=== PATIENT | female | born 1985 | race Caucasian/White ===

== ENCOUNTER → 2017-02-19 | Outpatient (CLI) | payer BC ==
[2017-02-19 14:35] LABS: Basophils % (A) 0 %; CH 27.9; CHCM 31.7; Eosinophils # (A) 0.1 k/uL (0-0.7); Eosinophils % (A) 1 %; HCT 44.4 % (34.0-46.0); HDW 2.36; Luc # (Auto) 0.09; Luc % (Auto) 1; Lymphocytes # (A) 1.9 k/uL (1.0-4.8); Lymphocytes % (A) 22 %; MCHC 31.6 g/dL (31.0-37.0); MCV 88.6 fL (80.0-100.0); Mean Platelet Volume 7.7; Monocytes # (A) 0.4 k/uL (0-1.0); Monocytes % (A) 4 %; Neutrophils % (A) 71 %; RBC 5.01 m/uL (3.80-5.40); RDW 15.1 % (11.5-15.5); WBC 8.5 k/uL (3.8-10.6); WBC (Perox) 9.04
[2017-02-19 14:56] LABS: C Reactive Protein 12.5 mg/L (<10.0); Creatine Kinase 53 U/L (30-135); Rheumatoid Factor, Qnt <9 IU/mL (<12)
[2017-02-19 15:41] LABS: Vitamin B12 342 pg/mL (239-931)
[2017-02-19 17:13] LABS: Erythrocyte Sedimentation Rate 8 mm/hr (0-20)
[2017-02-19 19:43] LABS: ANA w/Reflex to Titer NEGATIVE (NEGATIVE)
[2017-02-20 10:49] LABS: Lyme IgG/IgM 1.4 Index; Lyme IgG/IgM Interp POSITIVE (NEGATIVE)
== END | disposition home or self-care (01) ==
LOC: LABWHC1 13:35
PROVIDERS: ATTEND Psychiatry & Neurology Neurology
DX: M54.2 Cervicalgia (principal); M79.7 Fibromyalgia
CPT/HCPCS: 36415; 82306; 82550; 82607; 82747; 84439; 84443; 85025; 85652; 86038; 86140; 86225; 86431; 86618

== ENCOUNTER → 2017-05-23 | Outpatient (CLI) | payer BC ==
--- NOTE | 2017-05-24 08:49 | XR ---
EXAMINATION TYPE: XR KUB DATE OF EXAM: 05/23/2017 COMPARISON: NONE INDICATION: Lower abdominal pain TECHNIQUE: Single view abdomen FINDINGS: Normal colonic bowel gas is present. Fecal debris is in the ascending colon and some milder fecal di ris is in the transverse colon. Psoas margins are normal. No organomegaly is present. IMPRESSION: 1. Unremarkable Abdomen
== END | disposition home or self-care (01) ==
LOC: RADXRMAIN 17:07
PROVIDERS: ATTEND Nurse Practitioner Family
DX: R10.9 Unspecified abdominal pain (principal)
CPT/HCPCS: 74000

== ENCOUNTER → 2017-09-17 | Outpatient (CLI) | payer BC ==
[2017-09-17 16:55] LABS: Basophils % (A) 0 %; Eosinophils # (A) 0.1 k/uL (0-0.7); Eosinophils % (A) 1 %; HCT 41.7 % (34.0-46.0); HGB 13.1 gm/dL (11.4-16.0); Lymphocytes # (A) 2.9 k/uL (1.0-4.8); Lymphocytes % (A) 31 %; MCH 27.9 pg (25.0-35.0); MCHC 31.5 g/dL (31.0-37.0); MCV 88.8 fL (80.0-100.0); Mean Platelet Volume 7.7; Monocytes # (A) 0.4 k/uL (0-1.0); Monocytes % (A) 5 %; Neutrophils % (A) 63 %; Platelet Count 310 k/uL (150-450); RDW 13.3 % (11.5-15.5); WBC 9.6 k/uL (3.8-10.6)
[2017-09-17 17:12] LABS: ALT 20 U/L (9-52); AST 14 U/L (14-36); Albumin 4.2 g/dL (3.5-5.0); Alkaline Phosphatase 59 U/L (38-126); Anion Gap 12 mmol/L; Blood Urea Nitrogen 9 mg/dL (7-17); Calcium 9.7 mg/dL (8.4-10.2); Carbon Dioxide 24 mmol/L (22-30); Chloride 106 mmol/L (98-107); Glucose 90 mg/dL (74-99); Potassium 4.3 mmol/L (3.5-5.1); Sodium 142 mmol/L (137-145); Total Bilirubin 0.3 mg/dL (0.2-1.3)
== END | disposition home or self-care (01) ==
LOC: LABWHC1 16:21
PROVIDERS: ATTEND Psychiatry & Neurology Neurology
DX: G44.52 New daily persistent headache (NDPH) (principal)
CPT/HCPCS: 36415; 80053; 85025

== ENCOUNTER → 2018-03-06 | Outpatient (CLI) | payer BC ==
--- NOTE | 2018-03-06 10:39 | MM ---
Reason for exam: clinical finding. Baseline mammogram. History: Family history of breast cancer in maternal grandmother at age 35. Physical Findings: Nurse Summary: 0.5 x 0.5cm nodule in the right breast at 12 o'clock and a 1 x 1cm nodule in the left breast at 3 o'clock (nurse ts). MG 3D Diag Mammo W/Cad [facility]IS ALBERTO Bilateral CC, MLO, and XCCL view(s) were taken. The breast tissue is heterogeneously dense. This may lower the sensitivity of mammography. No suspicious abnormality. These results were verbally communicated with the patient and result sheet given to the patient on 03/06/18. ASSESSMENT: Negative, BI-RAD 1 RECOMMENDATION: Routine screening mammogram of both breasts in 1 year.
--- NOTE | 2018-03-06 10:41 | USB ---
Reason for exam: clinical finding. History: Family history of breast cancer in maternal grandmother at age 35. US Breast BILAT Right complete breast ultrasound includes all four quadrants, the retroareolar region and axilla. Finding demonstrates no cystic or solid lesion seen. Left complete breast ultrasound includes all four quadrants, the retroareolar region and axilla. Finding demonstrates a 0.7 x 0.7 x 0.3cm solid, hypoechoic lesion at 1 o'clock, possibly a lymph node or dense tissue. These results were verbally communicated with the patient and result sheet given to the patient on 03/06/18. ASSESSMENT: Probably benign, BI-RAD 3 RECOMMENDATION: Ultrasound of the left breast in 6 months. upper outer quadrant
== END ==
LOC: RADMAMWWP 08:10
PROVIDERS: ATTEND Family Medicine
DX: Z12.31 Encounter for screening mammogram for malignant neoplasm of breast (principal)
CPT/HCPCS: 77062; 77066

== ENCOUNTER 2019-08-06 | Emergency (ER) | payer BC | END 2019-08-06 12:25 | disposition home or self-care (01) | CPT/HCPCS: 36415; 80053; 82150; 83690; 85025; 81003; 81025; 76705; 99284; 96374; 96375; 96361; J2405; J1885 ==

== ENCOUNTER → 2020-06-22 | Outpatient (CLI) | payer BC ==
--- NOTE | 2020-06-22 09:37 | NM ---
EXAMINATION TYPE: NM hepatobiliary w CCK DATE OF EXAM: 06/22/2020 COMPARISON: NONE HISTORY: R10.11; R11.0 TECHNIQUE: After the intravenous administration of 4.16 mCi Tc 99m Mebrofenin hepatobiliary scintigra phy is performed. Immediate images post injection. FINDINGS: There is satisfactory initial accumulation of tracer by the liver. The gallbladder is visualized wit hin 10 minutes. The small bowel activity is noted within 60 minutes. At one hour CCK was administer ed, patient was injected with 2.7 mcg of Kinevac, and gallbladder ejection fraction is calculated at 97%. IMPRESSION: Findings suggest hypercontractile state.
== END | disposition home or self-care (01) ==
LOC: RADNMMAIN 06:47
PROVIDERS: ATTEND Family Medicine
DX: R10.11 Right upper quadrant pain (principal); R11.0 Nausea
CPT/HCPCS: 78227; A9537; J2805

== ENCOUNTER → 2020-07-16 | Outpatient (CLI) | payer BC | END | disposition home or self-care (01) | LOC: RADECHMAIN 11:50 | PROVIDERS: ATTEND Family Medicine | DX: I49.8 Other specified cardiac arrhythmias (principal); I49.1 Atrial premature depolarization; R00.0 Tachycardia, unspecified | CPT/HCPCS: 93225; 93226 ==

== ENCOUNTER 2020-07-21 08:54 | Day surgery (SDC) | payer BC ==
[2020-07-16 08:57] VITALS: BMI 43.2
[~2020-07-21 08:54] MED LIST: ACETAMINOPHEN TAB 500 MG TAB PO PRN; DEXAMETHASONE SOD PHOSPHATE 4 MG/ML 1 ML VIAL IV ONE; HEPARIN SODIUM,PORCINE 5,000 UNIT/ML 1 ML VIAL SQ PRN; LACTATED RINGERS 1,000 ML IV SCH; LIDOCAINE 1% (10MG/ML) FOR IV START INTRADERMA PRN; ceFAZolin 3 GM in SODIUM CHLORIDE 0.9% 100 ML IVPB PRN
[2020-07-21] MEDS ORDERED: ONDANSETRON 4 MG/2 ML VIAL ONE (09:47)
[2020-07-21] MEDS ORDERED: ONDANSETRON 4 MG/2 ML VIAL IVP ONE (09:50)
[2020-07-21] MEDS ORDERED: SUCCINYLCHOLINE CHLORIDE 100 MG/5 ML SYR IV ONE (10:19)
[2020-07-21] MEDS ORDERED: ROCURONIUM 10 MG/ML (5 ML VIAL) IV ONE (10:19)
[2020-07-21] MEDS ORDERED: PROPOFOL 10 MG/ML 20 ML VIAL IV ONE (10:19)
[2020-07-21] MEDS ORDERED: MIDAZOLAM 2 MG/2 ML VIAL ONE (10:19)
[2020-07-21] MEDS ORDERED: fentaNYL (PF) 50 MCG/ML 2 ML AMP ONE (10:19)
[2020-07-21] MEDS ORDERED: GLYCOPYRROLATE 0.2 MG/ML 2 ML VIAL ONE (10:19)
[2020-07-21] MEDS ORDERED: LIDOCAINE 1% INJ 10MG/ML (20 ML MDV) ONE (10:19)
[2020-07-21] MEDS ORDERED: NEOSTIGMINE 1 MG/ML 10 ML VIAL ONE (10:19)
--- NOTE | 2020-07-21 10:36 | P.GSHP ---
History of Present Illness H&P Date: 07/21/20 Chief Complaint: Right upper quadrant pain Is a 34-year-old female who presents today for laparoscopic cholecystectomy. She's had complete upper quadrant pain. Her recent HIDA scan shows abnormal ejection fraction Past Medical History Past Medical History: Fibromyalgia, GERD/Reflux Additional Past Medical History / Comment(s): MIGRAINES. GALLBLADDER DISORDER History of Any Multi-Drug Resistant Organisms: None Reported Past Surgical History: Section, Orthopedic Surgery Additional Past Surgical History / Comment(s): wisdom teeth. CYSTS REMOVED FROM BILAT EARS. ORIF RT ANKLE Past Anesthesia/Blood Transfusion Reactions: No Reported Reaction Smoking Status: Never smoker - Past Family History Mother Family Medical History: No Reported History Medications and Allergies Home Medications Medication Instructions Recorded Confirmed Type Cholecalciferol [Vitamin D3] 5,000 unit PO DAILY 05/22/16 07/21/20 History Amitriptyline HCl 10 mg PO HS 08/06/19 07/21/20 History Amitriptyline HCl [Elavil] 25 mg PO HS 08/06/19 07/21/20 History DULoxetine HCL [Cymbalta] 30 mg PO DAILY 08/06/19 07/21/20 History DULoxetine HCL [Cymbalta] 60 mg PO DAILY 08/06/19 07/21/20 History Gabapentin 600 mg PO HS 08/06/19 07/21/20 History Ibuprofen [Motrin Ib] 200 mg PO Q8H PRN 08/06/19 07/21/20 History Naproxen Sodium [Aleve] 220 mg PO BID PRN 08/06/19 07/21/20 History Naratriptan HCl [Amerge] 2.5 mg PO DAILY PRN 08/06/19 07/21/20 History Topiramate [Topamax] 50 mg PO BID 08/06/19 07/21/20 History clonazePAM [KlonoPIN] 0.5 mg PO BID PRN 08/06/19 07/21/20 History diphenhydrAMINE HCL [Benadryl] 25 mg PO Q8H PRN 08/06/19 07/21/20 History Lansoprazole [Prevacid] 30 mg PO DAILY 07/16/20 07/21/20 History Allergies Allergy/AdvReac Type Severity Reaction Status Date / Time No Known Allergies Allergy Verified 07/21/20 09:32 Surgical - Exam Vital Signs Temp Pulse Resp BP Pulse Ox 98.2 F 80 18 133/72 100 07/21/20 09:29 07/21/20 09:29 07/21/20 09:29 07/21/20 09:29 07/21/20 09:29 - General well developed, well nourished, no distress - Eyes PERRL - ENT normal pinna - Neck no masses - Respiratory normal expansion - Cardiovascular Rhythm: regular - Abdomen Abdomen: soft, non tender Assessment and Plan Assessment: Chronic cholecystitis. We'll perform laparoscopic cholecystectomy
[2020-07-21] MEDS ORDERED: BUPIVACAINE-EPI 0.5%-1:200,000 10 ML VIAL SQ ONE (11:11)
[2020-07-21 11:42] VITALS: TEMP 97.8
[2020-07-21 11:46] VITALS: RESP 16
[2020-07-21] MEDS: HYDROmorphone 0.5 MG/0.5 ML SYRINGE IVP PRN ×2 (12:05→12:13)
[2020-07-21] MEDS ORDERED: diphenhydrAMINE 50 MG/ML 1 ML VIAL IVP ONE (12:13)
[2020-07-21] MEDS ORDERED: KETOROLAC 15 MG/ML 1 ML VIAL ONE (12:59)
[2020-07-21] MEDS ORDERED: KETOROLAC 15 MG/ML 1 ML VIAL IVP ONE (13:01)
[2020-07-21 13:33] VITALS: BP 127/85; PULSE 83
--- NOTE | 2020-08-06 07:54 | P.OP ---
Date of Procedure: 07/21/20 Preoperative Diagnosis: Biliary dyskinesia Postoperative Diagnosis: Chronic cholecystitis Procedure(s) Performed: Laparoscopic cholecystectomy Anesthesia: NETTA Surgeon: Joel Chen Pathology: other (Gallbladder) Condition: stable Disposition: PACU Description of Procedure: The patient was placed on the operating table. The patient received a general endotracheal tube anesthesia. The patients abdomen was prepped and draped in the usual sterile fashion. Through an infraumbilical stab incision, the fascia of the anterior abdominal wall was grasped with a pair of Kochers and then the Veress needle was placed in the peritoneal cavity. Position of the Veress needle was confirmed with positive drop test. The abdomen was then insufflated. After adequate insufflation, the 10 mm trocar was placed in the peritoneal cavity. Following this the laparoscope was placed in the perito nabila cavity. The patient was placed in the head-up, right side up position and then a 5 mm trocar was placed in the right lateral and right subcostal position under direct visualization. A 8 mm trocar was placed in the epigastric position. The gallbladder was grasped in the fundus and infundibulum. Traction on the gallbladder was placed in the lateral and the cephalad positions. The triangle of Calot was visualized.. The cystic duct was bluntly dissected until the union of the cystic duct and common bile duct was seen. A critical view of safety was achieved. The cystic duct was then divided and sealed with the Harmonic scissors. A PDS Endoloop was then placed throughout the cystic duct stump. The cystic artery divided and sealed with the Harmonic scissors. The gallbladder was then removed from the liver bed using Harmonic scissors. The gallbladder was then extracted through the epigastric port site. Operative field was checked for any bleeding spots and Harmonic scissors was used to coagulate the liver bed. The abdomen was irrigated. The trocars were removed. The skin was closed using interrupted 3-0 Vicryl suture. Dermabond dressing were applied. The patient tolerated the procedure well.
== END 2020-07-21 13:54 | disposition home or self-care (01) ==
LOC: OR 08:54
PROVIDERS: ATTEND Surgery
DX: K81.1 Chronic cholecystitis (principal); K21.9 Gastro-esophageal reflux disease without esophagitis; M79.7 Fibromyalgia; G43.909 Migraine, unspecified, not intractable, without status migrainosus; Z98.890 Other specified postprocedural states; Z98.891 History of uterine scar from previous surgery; Z79.899 Other long term (current) drug therapy; E66.9 Obesity, unspecified; Z68.41 Body mass index [BMI] 40.0-44.9, adult
CPT/HCPCS: 47562; 81025; 88304; J2250; J1200; J1644; J1100; J2710; J0690; J2405; J2001; J3010; J1885; J0330; J2704; J1170

== ENCOUNTER → 2021-02-05 | Outpatient (CLI) | payer BC ==
--- NOTE | 2021-02-05 17:01 | XR ---
EXAMINATION TYPE: XR knee limited RT DATE OF EXAM: 02/05/2021 CLINICAL HISTORY: Right medial knee pain and swelling after twisting injury. TECHNIQUE: Frontal and lateral views of the right knee COMPARISON: None. FINDINGS: No acute fracture or dislocation. No significant degenerative changes. Small knee joint effusion. Sof t tissues appear unremarkable. IMPRESSION: 1. Small knee joint effusion. 2. No acute fracture or dislocation.
== END | disposition home or self-care (01) ==
LOC: RADXRMAIN 14:05
PROVIDERS: ATTEND Physician Assistant Medical
DX: M25.461 Effusion, right knee (principal)

== ENCOUNTER → 2021-06-09 | Outpatient (CLI) | payer BC ==
[2021-06-09 23:07] LABS: Basophils # (A) 0.08 X 10*3/uL (0.00-0.10); Basophils % (A) 0.7 %; Eosinophils % (A) 1.8 %; HCT 39.1 % (37.2-46.3); HGB 11.7 g/dL (12.0-15.0); Lymphocytes # (A) 3.25 X 10*3/uL (0.90-5.00); Lymphocytes % (A) 28.8 %; MCH 25.9 pg (27.0-32.0); MCHC 29.9 g/dL (32.0-37.0); MCV 86.7 fL (80.0-97.0); Mean Platelet Volume 10.5 fL (9.5-12.2); Monocytes # (A) 0.83 X 10*3/uL (0.20-1.00); Monocytes % (A) 7.3 %; Neutrophils # (A) 6.87 X 10*3/uL (1.80-7.70); Neutrophils % (A) 60.8 %; Platelet Count 417 X 10*3/uL (140-440); RBC 4.51 X 10*6/uL (4.10-5.20); RDW 15.6 % (11.5-14.5)
== END | disposition home or self-care (01) ==
LOC: LABWHC1 16:19
PROVIDERS: ATTEND Physician Assistant Medical
DX: D72.829 Elevated white blood cell count, unspecified (principal)
CPT/HCPCS: 36415; 85025

== ENCOUNTER → 2021-08-26 | Outpatient (CLI) | payer BC ==
--- NOTE | 2021-08-29 10:51 | MM ---
Reason for exam: screening (asymptomatic). Last mammogram was performed 3 years and 6 months ago. History: Family history of breast cancer in maternal grandmother at age 35. Physical Findings: A clinical breast exam by your physician is recommended on an annual basis and results should be correlated with mammographic findings. MG Screening Mammo w CAD Bilateral CC and MLO view(s) were taken. Prior study comparison: March 06, 2018, bilateral MG 3d diag mammo w/cad [facility] ALBERTO. The breast tissue is heterogeneously dense. This may lower the sensitivity of mammography. There is no discrete abnormality. ASSESSMENT: Negative, BI-RAD 1 RECOMMENDATION: Routine screening mammogram of both breasts in 1 year.
== END | disposition home or self-care (01) ==
LOC: RADMAMWWP 07:34
PROVIDERS: ATTEND Family Medicine
DX: Z12.31 Encounter for screening mammogram for malignant neoplasm of breast (principal); Z80.3 Family history of malignant neoplasm of breast
CPT/HCPCS: 77067

== ENCOUNTER → 2022-10-17 | Outpatient (CLI) | payer BC ==
[2022-10-17 22:42] LABS: Urine Alcohol Negative (Negative); Urine Barbiturate Negative (Negative); Urine Cocaine Negative (Negative); Urine Methadone Negative (Negative); Urine Opiates Negative (Negative); Urine Phencyclidine Negative (Negative)
== END | disposition home or self-care (01) ==
LOC: LABWHC1 14:57
PROVIDERS: ATTEND Nurse Practitioner
DX: Z79.899 Other long term (current) drug therapy (principal)
CPT/HCPCS: 80306

== ENCOUNTER → 2023-06-22 | Outpatient (CLI) | payer BC ==
[2023-06-22 15:40] LABS: Basophils # (A) 0.05 X 10*3/uL (0.00-0.10); Basophils % (A) 0.5 %; Eosinophils # (A) 0.14 X 10*3/uL (0.04-0.35); Eosinophils % (A) 1.4 %; HCT 44.8 % (37.2-46.3); HGB 13.4 g/dL (12.0-15.0); Lymphocytes # (A) 2.61 X 10*3/uL (0.90-5.00); Lymphocytes % (A) 25.8 %; MCH 25.3 pg (27.0-32.0); MCHC 29.9 g/dL (32.0-37.0); MCV 84.5 FL (80.0-97.0); Mean Platelet Volume 10.5 FL (9.5-12.2); Monocytes # (A) 0.64 X 10*3/uL (0.20-1.00); Monocytes % (A) 6.3 %; NRBC Per 100 WBC 0 X 10*3/uL (0.00-0.01); Neutrophils # (A) 6.64 X 10*3/uL (1.80-7.70); Neutrophils % (A) 65.7 %; Platelet Count 444 X 10*3/uL (140-440); WBC 10.11 X 10*3/uL (4.50-10.00)
[2023-06-22 16:35] LABS: ALT 28 U/L (8-44); AST 15 U/L (13-35); Albumin 4.2 g/dL (3.8-4.9); Albumin/Globulin Ratio 1.35 Ratio (1.60-3.17); Alkaline Phosphatase 83 U/L (41-126); BUN/Creat Ratio 9.56 Ratio (12.00-20.00); Blood Urea Nitrogen 8.6 mg/dL (9.0-27.0); Calcium 9.9 mg/dL (8.7-10.3); Carbon Dioxide 20.1 mmol/L (21.6-31.8); Chloride 109 mmol/L (96-109); Chol/HDL Ratio 4.77 Ratio; Globulin 3.1 g/dL (1.6-3.3); Glucose 103 mg/dL (70-110); LDL Cholesterol,Calculated 129.8 mg/dL (0.0-131.0); Potassium 4.6 mmol/L (3.5-5.5); Sodium 141 mmol/L (135-145); Total Bilirubin 0.4 mg/dL (0.3-1.2); Total Protein 7.3 g/dL (6.2-8.2); VLDL Calculation 19.58 mg/dL (5.00-40.00)
== END | disposition home or self-care (01) ==
LOC: LABWHC1 09:59
PROVIDERS: ATTEND Family Medicine
DX: Z13.21 Encounter for screening for nutritional disorder (principal); Z13.220 Encounter for screening for lipoid disorders; Z13.228 Encounter for screening for other metabolic disorders; Z13.29 Encounter for screening for other suspected endocrine disorder
CPT/HCPCS: 36415; 80053; 80061; 82306; 82607; 84443; 85025

== ENCOUNTER → 2024-09-06 | Outpatient (CLI) | payer BC ==
[2024-09-07 07:33] LABS: Basophils # (A) 0.05 X 10*3/uL (0.00-0.10); Basophils % (A) 0.5 %; Eosinophils # (A) 0.27 X 10*3/uL (0.04-0.35); HCT 43.7 % (37.2-46.3); HGB 13.3 g/dL (12.0-15.0); Lymphocytes # (A) 2.55 X 10*3/uL (0.90-5.00); Lymphocytes % (A) 27.9 %; MCH 25.8 pg (27.0-32.0); MCHC 30.4 g/dL (32.0-37.0); MCV 84.7 FL (80.0-97.0); Mean Platelet Volume 11.1 FL (9.5-12.2); Monocytes # (A) 0.56 X 10*3/uL (0.20-1.00); Monocytes % (A) 6.1 %; NRBC Per 100 WBC 0 X 10*3/uL (0.00-0.01); Neutrophils # (A) 5.69 X 10*3/uL (1.80-7.70); Neutrophils % (A) 62.3 %; Platelet Count 390 X 10*3/uL (140-440); RBC 5.16 X 10*6/uL (4.10-5.20); RDW 16.3 % (11.5-14.5); WBC 9.14 X 10*3/uL (4.50-10.00)
[2024-09-07 12:27] LABS: Chol/HDL Ratio 4.98 Ratio; LDL Cholesterol,Calculated 136.8 mg/dL (0.0-131.0)
[2024-09-07 12:37] LABS: ALT 30 U/L (8-44); AST 28 U/L (13-35); Albumin 4.2 g/dL (3.8-4.9); Albumin/Globulin Ratio 1.27 Ratio (1.60-3.17); Alkaline Phosphatase 79 U/L (41-126); BUN/Creat Ratio 8.78 Ratio (12.00-20.00); Blood Urea Nitrogen 7.9 mg/dL (9.0-27.0); Calcium 9.8 mg/dL (8.7-10.3); Carbon Dioxide 12.1 mmol/L (21.6-31.8); Chloride 109 mmol/L (96-109); Globulin 3.3 g/dL (1.6-3.3); Glucose 91 mg/dL (70-110); Sodium 142 mmol/L (135-145); Total Bilirubin 0.4 mg/dL (0.3-1.2); Total Protein 7.5 g/dL (6.2-8.2)
[2024-09-09 00:35] LABS: Clam IgE <0.10 kU/L; Codfish IgE <0.10 kU/L; Egg White IgE <0.10 kU/L; Peanut IgE <0.10 kU/L; Scallop IgE <0.10 kU/L; Shrimp IgE <0.10 kU/L; Soybean IgE <0.10 kU/L; Walnut IgE (Food) <0.10 kU/L
[2024-09-09 12:03] LABS: Alt. alternata IgE Class CLASS 0; Alternaria alternata IgE <0.10 kU/L (<0.10); Asperg. fumagatus IgE <0.10 kU/L (<0.10); Asperg. fumagatus IgE Class CLASS 0; Bermuda Grass IgE <0.10 kU/L (<0.10); Birch(Com.Silvr) IgE <0.10 kU/L (<0.10); Birch(Com.Silvr) IgE Class CLASS 0; Candida albicans IgE Class CLASS 0; Cat Epith & Dander IgE 0.19 kU/L (<0.10); Cat Epith & Dander IgE Class CLASS 0/1; Clad herbarum IgE <0.10 kU/L (<0.10); Clad herbarum IgE Class CLASS 0; Cockroach IgE <0.10 kU/L (<0.10); Cottonwood IgE <0.10 kU/L (<0.10); Dermato. Pteronyssinus Class CLASS 2; Dermato. Pteronyssinus IgE 1.29 kU/L (<0.10); Dermato. farinae IgE 1.56 kU/L (<0.10); Dermato. farinae IgE Class CLASS 2; Dog Dander IgE <0.10 kU/L (<0.10); Elm IgE <0.10 kU/L (<0.10); IgE (Allergen) 33.2 IU/mL (<114.0); Maple (Box Elder) IgE <0.10 kU/L (<0.10); Maple (Box Elder) IgE Class CLASS 0; Mountain Cedar IgE <0.10 kU/L (<0.10); Mountain Cedar IgE Class CLASS 0; Mouse Urine IgE Class CLASS 0; Mouse Urine Proteins,IgE <0.10 kU/L (<0.10); Mucor racemosus IgE <0.10 kU/L (<0.10); Mucor racemosus IgE Class CLASS 0; Nettle IgE <0.10 kU/L (<0.10); Nettle IgE Class CLASS 0; Oak IgE <0.10 kU/L (<0.10); Penicillium chrysogenum IgE <0.10 kU/L (<0.10); Penicillium chrysogenum IgE Cl CLASS 0; Rough Marshelder IgE <0.10 kU/L (<0.10); Rough Marshelder IgE Class CLASS 0; Timothy Grass IgE 0.17 kU/L (<0.10); Timothy Grass IgE Class CLASS 0/1; White Ash IgE Class CLASS 0
== END | disposition home or self-care (01) ==
LOC: LABWHC1 10:11
PROVIDERS: ATTEND Nurse Practitioner Family
DX: Z13.220 Encounter for screening for lipoid disorders (principal); Z13.29 Encounter for screening for other suspected endocrine disorder; F41.9 Anxiety disorder, unspecified; G43.009 Migraine without aura, not intractable, without status migrainosus; J30.9 Allergic rhinitis, unspecified; K21.9 Gastro-esophageal reflux disease without esophagitis; M79.7 Fibromyalgia; Z91.018 Allergy to other foods
CPT/HCPCS: 36415; 80053; 80061; 82306; 82785; 84443; 85025; 86003